=== PATIENT | female | born 1995 | race Caucasian/White ===

== ENCOUNTER → 2017-02-15 | Outpatient (REF) | payer OTHER ==
[~2017-02-15] MED LIST: BENT20TA PO; NORT1TAB PO; VITA500046 PO
== END ==
LOC: M LAB REF 10:04
PROVIDERS: ATTEND Physician Assistant
DX: R10.9 Unspecified abdominal pain (principal); R19.7 Diarrhea, unspecified

== ENCOUNTER 2017-02-20 14:42 | Emergency (ER) | payer OTHER ==
[~2017-02-20] VITALS: Ht 165.1 cm; Wt 100.0 kg
[2017-02-20] MEDS ORDERED: NORT1TAB PO (14:50)
[2017-02-20] MEDS ORDERED: VITA500046 PO (14:50)
[2017-02-20 17:08] LABS: CONTROL LINE UCG INT CTR LINE PRESENT
[2017-02-20] MEDS ORDERED: BENT20TA PO (18:16)
[2017-02-20 18:28] VITALS: BP 133/66
--- NOTE | 2017-02-21 08:38 | REP ---
REASON: Lower abdominal pain. COMPARISON: 07/31/2010. FINDINGS: Supine and upright views of the abdomen show the intestinal gas pattern to be nonspecific. Gas and stool is seen throughout the colon within the rectosigmoid region. The organ silhouettes insofar as delineated appear unremarkable. No abdominal calcific densities are seen within the abdomen or pelvis. The accompanying single frontal view of the chest shows no free subdiaphragmatic air, cardiomegaly, infiltrates or effusions. IMPRESSION: Nonspecific intestinal gas pattern. The accompanying frontal view of the chest is unchanged compared to the prior chest of 07/31/2010. Signed by Aaron Gonzales DO 02/21/2017 08:56 A
== END 2017-02-20 18:45 | disposition home or self-care (01) ==
LOC: M ED 14:42
DX: R10.9 Unspecified abdominal pain (principal); R19.7 Diarrhea, unspecified; Z79.899 Other long term (current) drug therapy; Z88.0 Allergy status to penicillin; Z88.2 Allergy status to sulfonamides; Z88.1 Allergy status to other antibiotic agents

== ENCOUNTER 2018-09-01 14:39 | Emergency (ER) | payer OTHER ==
[~2018-09-01] VITALS: Ht 162.6 cm; Wt 105.8 kg
[2018-09-01 14:39] VITALS: BP 149/84
[2018-09-01] MEDS ORDERED: PROAAER10 (14:47)
[2018-09-01] MEDS ORDERED: ONDANSETRON 4 MG ORAL DISINTEGRATING TAB (Q0162 PER 1MG) PO ONE (15:30)
[2018-09-01 15:36] LABS: BASO % 0.3 % (0.0-1.0); EOS % 0.1 % (0.0-3.0); HEMATOCRIT 35.4 % (36.0-47.0); HEMOGLOBIN 12.2 g/dl (12.0-15.5); LYMPH # 1.3 10^3/uL (1.5-6.5); LYMPH % 18.6 % (24.0-44.0); MEAN CORPUSCULAR HGB CONC 34.5 g/dl (32.0-36.5); MEAN CORPUSCULAR VOLUME 89.8 fl (80.0-96.0); MONO # 0.4 10^3/uL (0.0-0.8); MONO % 4.9 % (0.0-5.0); NEUTROPHILS # 5.4 10^3/uL (1.8-7.7); NEUTROPHILS % 75.8 % (36.0-66.0); PLATELET COUNT, AUTOMATED 231 10^3/uL (150-450); RED BLOOD COUNT 3.94 10^6/uL (4.00-5.40); WHITE BLOOD COUNT 7.1 10^3/uL (4.0-10.0)
[2018-09-01 15:39] LABS: AMORPHOUS SEDIMENT SMALL (NEGATIVE); APPEARANCE, URINE CLOUDY (CLEAR); BACTERIA, URINE AUTO 1+ (NEGATIVE); BILIRUBIN, URINE AUTO 1+ (NEGATIVE); BLOOD, URINE BLOOD 2+ (NEGATIVE); COLOR, URINE AMBER (YELLOW); GLUCOSE, URINE (UA) AUTO NEGATIVE (NEGATIVE); KETONE, URINE AUTO 1+ mg/dL (NEGATIVE); LEUKOCYTE ESTERASE, URINE AUTO NEGATIVE (NEGATIVE); MUCUS, URINE LARGE (NEGATIVE); NITRITE, URINE AUTO NEGATIVE (NEGATIVE); PROTEIN, URINE AUTO 2+ mg/dL (NEGATIVE); RBC, URINE AUTO 13 /HPF (0-3); SPECIFIC GRAVITY URINE AUTO 1.032 (1.002-1.035); SQUAMOUS EPITHELIAL CELL UR AU 4 /HPF (0-6); WBC, URINE AUTO 7 /HPF (0-3)
[2018-09-01 15:58] LABS: HCG, SERUM QUALITATIVE NEGATIVE (NEGATIVE)
[2018-09-01 16:00] LABS: ALBUMIN 3.3 GM/DL (3.2-5.2); ALT/SGPT 24 U/L (12-78); BILIRUBIN,DIRECT 0.2 MG/DL (0.0-0.2); BILIRUBIN,TOTAL 0.5 MG/DL (0.2-1.0); BLOOD UREA NITROGEN 7 MG/DL (7-18); CALCIUM LEVEL 9.1 MG/DL (8.5-10.1); CARBON DIOXIDE LEVEL 25 MEQ/L (21-32); CHLORIDE LEVEL 106 MEQ/L (98-107); CREATININE FOR GFR 0.92 MG/DL (0.55-1.30); GLOMERULAR FILTRATION RATE > 60.0 (>60); GLUCOSE, FASTING 92 MG/DL (70-100); LIPASE 58 U/L (73-393); POTASSIUM SERUM 3.7 MEQ/L (3.5-5.1); SODIUM LEVEL 139 MEQ/L (136-145); TOTAL PROTEIN 7.4 GM/DL (6.4-8.2)
[2018-09-01] MEDS ORDERED: DICYCLOMINE 10 MG CAP PO ONE (16:45)
[2018-09-01] MEDS ORDERED: DICY20TA11 PO (17:13)
[2018-09-01] MEDS ORDERED: ONDA4TAB6 PO (17:13)
== END 2018-09-01 17:19 | disposition home or self-care (01) ==
LOC: M ED 14:39
DX: A02.0 Salmonella enteritis (principal); J45.909 Unspecified asthma, uncomplicated; Z72.0 Tobacco use; Z79.899 Other long term (current) drug therapy; Z88.2 Allergy status to sulfonamides; Z88.0 Allergy status to penicillin
CPT/HCPCS: 36415; 80048; 80076; 81001; 83690; 84703; 85025; 87507; 99284; Q0162

== ENCOUNTER → 2020-09-28 | Outpatient (CLI) | payer OTHER ==
[~2020-09-28] MED LIST changes: +DICY20TA11 PO; +ONDA4TAB6 PO; +PROAAER10
== END ==
LOC: M LABSMTC 09:47
PROVIDERS: ATTEND Pediatrics
DX: Z11.52 Encounter for screening for COVID-19 (principal)

== ENCOUNTER → 2021-03-31 | Outpatient (CLI) | payer OTHER ==
[~2021-03-31] MED LIST changes: -DICY20TA11 PO; +DICY20TA20 PO
== END ==
LOC: M RAD 10:04
PROVIDERS: ATTEND Nurse Practitioner
DX: R10.2 Pelvic and perineal pain (principal)

== ENCOUNTER → 2021-07-30 | Outpatient (CLI) | payer OTHER | LOC: M WHC 13:03 | PROVIDERS: ATTEND Nurse Practitioner | DX: R10.2 Pelvic and perineal pain (principal) ==

== ENCOUNTER 2022-01-03 22:15 | Emergency (ER) | payer OTHER ==
[~2022-01-03] VITALS: Ht 165.1 cm; Wt 109.1 kg
[2022-01-03 23:04] LABS: BASO # 0.1 10^3/uL (0.0-0.2); BASO % 0.6 % (0.0-1.0); EOS # 0.2 10^3/uL (0.0-0.5); HEMATOCRIT 35.7 % (36.0-47.0); LYMPH # 3.5 10^3/uL (1.5-5.0); LYMPH % 38.5 % (24.0-44.0); MEAN CORPUSCULAR HEMOGLOBIN 30.8 pg (27.0-33.0); MEAN CORPUSCULAR HGB CONC 33.6 g/dl (32.0-36.5); MEAN CORPUSCULAR VOLUME 91.8 fl (80.0-96.0); MONO # 0.5 10^3/uL (0.0-0.8); MONO % 5.8 % (2.0-8.0); NEUTROPHILS # 4.8 10^3/uL (1.5-8.5); NEUTROPHILS % 52.9 % (36.0-66.0); PLATELET COUNT, AUTOMATED 298 10^3/uL (150-450); RED BLOOD COUNT 3.89 10^6/uL (4.00-5.40)
[2022-01-04 00:11] LABS: ALBUMIN 3.7 GM/DL (3.2-5.2); ALT/SGPT 29 U/L (12-78); BILIRUBIN,DIRECT 0.1 MG/DL (0.0-0.2); BILIRUBIN,TOTAL 0.6 MG/DL (0.2-1.0); BLOOD UREA NITROGEN 18 MG/DL (7-18); CALCIUM LEVEL 9.2 MG/DL (8.5-10.1); CARBON DIOXIDE LEVEL 27 MEQ/L (21-32); CHLORIDE LEVEL 107 MEQ/L (98-107); CREATININE FOR GFR 0.93 MG/DL (0.55-1.30); GLOMERULAR FILTRATION RATE > 60.0 (>60); GLUCOSE, FASTING 109 MG/DL (70-100); LIPASE 69 U/L (73-393); POTASSIUM SERUM 4.1 MEQ/L (3.5-5.1); SODIUM LEVEL 140 MEQ/L (136-145); TOTAL PROTEIN 7.1 GM/DL (6.4-8.2)
[2022-01-04] MEDS ORDERED: ONDANSETRON 4MG 2ML VIAL IV ONE (04:20)
[2022-01-04] MEDS ORDERED: KETOROLAC 30 MG/ML 1ML VIAL IV ONE (04:20)
[2022-01-04] MEDS ORDERED: ISOVUE-370 76% 100ML VIAL As Ordered ONE (04:28)
[2022-01-04 06:30] VITALS: BP 140/80
[2022-01-04] MEDS ORDERED: ONDA4TAB6 PO (06:31)
[2022-01-04] MEDS ORDERED: NAPR-837 PO (06:31)
== END 2022-01-04 06:46 | disposition home or self-care (01) ==
LOC: M ED 22:15
DX: R10.9 Unspecified abdominal pain (principal); R11.0 Nausea; R19.7 Diarrhea, unspecified; K76.0 Fatty (change of) liver, not elsewhere classified; Z87.19 Personal history of other diseases of the digestive system; F17.200 Nicotine dependence, unspecified, uncomplicated; Z88.1 Allergy status to other antibiotic agents; Z88.2 Allergy status to sulfonamides; Z79.51 Long term (current) use of inhaled steroids; Z79.899 Other long term (current) drug therapy
CPT/HCPCS: 74177; 80048; 80076; 81000; 81015; 83690; 84702; 85025; 96374; 96375; 99284; J1885; J2405; Q9967

== ENCOUNTER → 2022-02-16 | Outpatient (CLI) | payer OTHER ==
[~2022-02-16] MED LIST changes: +NAPR-837 PO
== END ==
LOC: M RAD 07:40
PROVIDERS: ATTEND Surgery Trauma Surgery
DX: R10.11 Right upper quadrant pain (principal)

== ENCOUNTER → 2022-03-28 | Outpatient (CLI) | payer OTHER ==
[2022-03-28 14:57] LABS: BASO % 0.5 % (0.0-1.0); EOS # 0.2 10^3/uL (0.0-0.5); EOS % 3.3 % (0.0-3.0); HEMATOCRIT 36.1 % (36.0-47.0); HEMOGLOBIN 12.1 g/dl (12.0-15.5); LYMPH # 1.8 10^3/uL (1.5-5.0); MEAN CORPUSCULAR HEMOGLOBIN 30.5 pg (27.0-33.0); MEAN CORPUSCULAR HGB CONC 33.5 g/dl (32.0-36.5); MEAN CORPUSCULAR VOLUME 90.9 fl (80.0-96.0); MONO # 0.4 10^3/uL (0.0-0.8); MONO % 6.4 % (2.0-8.0); NEUTROPHILS # 3.6 10^3/uL (1.5-8.5); NEUTROPHILS % 59.5 % (36.0-66.0); PLATELET COUNT, AUTOMATED 252 10^3/uL (150-450); RED BLOOD COUNT 3.97 10^6/uL (4.00-5.40); WHITE BLOOD COUNT 6.1 10^3/uL (4.0-10.0)
[2022-03-28 15:18] LABS: LIPASE 23 U/L (12-53)
[2022-03-28 15:20] LABS: ALBUMIN 3.6 G/DL (3.2-5.2); ALKALINE PHOSPHATASE 45 U/L (46-116); ALT/SGPT 23 U/L (7.0-40); AMYLASE 47 U/L (30-118); AST/SGOT 19 U/L (<34); BILIRUBIN,TOTAL 0.9 MG/DL (0.3-1.2); BLOOD UREA NITROGEN 12 MG/DL (9-23); CARBON DIOXIDE LEVEL 25 MMOL/L (20-31); CHLORIDE LEVEL 106 MMOL/L (98-107); CREATININE FOR GFR 0.77 MG/DL (0.55-1.30); GLOMERULAR FILTRATION RATE > 60.0 (>60); GLUCOSE, FASTING 93 MG/DL (60-100); SODIUM LEVEL 139 MMOL/L (136-145)
[2022-03-28 15:22] LABS: THYROID STIMULATING HORMONE 1.162 uIU/ML (0.55-4.78)
[2022-03-31 17:07] LABS: H PYLORI SERUM QUANT IGM <9.0 units (0.0-8.9); H PYLORI SERUM QUANT IgG ABY 0.17 (0.00-0.79)
== END ==
LOC: M LAB 14:09
PROVIDERS: ATTEND Nurse Practitioner
DX: K29.00 Acute gastritis without bleeding (principal)

== ENCOUNTER → 2022-03-31 | Outpatient (CLI) | payer OTHER | LOC: M WHC 07:51 | PROVIDERS: ATTEND Student in an Organized Health Care Education/Training Program | DX: R10.9 Unspecified abdominal pain (principal) ==

== ENCOUNTER → 2023-08-13 | Outpatient (CLI) | payer OTHER | LOC: M PLAIMG 08:14 | PROVIDERS: ATTEND Nurse Practitioner | DX: K86.9 Disease of pancreas, unspecified (principal) ==